=== PATIENT | female | born 1990 | race Asian ===

== ENCOUNTER 2018-06-17 06:01 | Inpatient (IN) | payer OTHER ==
[2018-06-17] MEDS ORDERED: NALOXONE HYDROCHLORIDE 0.4 MG/ML SOL IV PRN (06:25)
[2018-06-17] MEDS ORDERED: MEPIVACAINE HCL 1% MPF 30 ML/VIAL SOL INFIL PRN (06:25)
[2018-06-17] MEDS ORDERED: METHYLERGONOVINE MALEATE 0.2 MG/ML SOL IM PRN (06:25)
[2018-06-17] MEDS ORDERED: FENTANYL 100MCG/2ML SOL IV PRN (06:25)
[2018-06-17] MEDS ORDERED: LACTATED RINGERS 1,000 ML IV PRN (06:25)
[2018-06-17] MEDS ORDERED: CARBOPROST 250 MCG/ML SOL IM PRN (06:25)
[2018-06-17] MEDS ORDERED: SODIUM CHLORIDE 0.9% FLUSH 10 ML SOL IV PRN (06:25)
[2018-06-17] MEDS ORDERED: DIPHENHYDRAMINE 50 MG/ML SOL IV PRN (06:25)
[2018-06-17] MEDS ORDERED: OXYTOCIN 10000 MU/ML SOL IM PRN (06:25)
[2018-06-17] MEDS ORDERED: NALBUPHINE HCL 20 MG/ML SOL IV PRN (06:25)
[2018-06-17] MEDS ORDERED: EPHEDRINE SULFATE 50 MG/ML SOL IV PRN (06:25)
[2018-06-17] MEDS: SODIUM CHLORIDE 0.9% FLUSH 10 ML SOL IV SCH ×2 (06:30→19:48)
[2018-06-17 07:20] LABS: BASOPHILS % (AUTO) 1 % (0-3); EOSINOPHILS % (AUTO) 2 % (0-9); HEMATOCRIT 32 % (35-47); HEMOGLOBIN 10.3 gm/dl (12.0-15.5); LYMPHOCYTES % (AUTO) 19.3 % (10-50); MEAN CORPUSCULAR HEMOGLOBIN 27.8 pg (27.0-32.0); MEAN CORPUSCULAR HGB CONC 31.9 gm/dl (32.0-36.0); MEAN CORPUSCULAR VOLUME 87 fL (81-99); MONOCYTES % (AUTO) 7.8 % (0-12); NEUTROPHILS % (AUTO) 70.4 % (37-80)
[2018-06-17] MEDS: LACTATED RINGERS 1,000 ML IV SCH ×5 (07:30→20:14)
[2018-06-17] MEDS ORDERED: FENTANYL 250 MCG/ 5ML SOL ONE (07:49)
[2018-06-17] MEDS ORDERED: LIDOCAINE HCL 2% MPF 10 ML SOL ONE (07:50)
[2018-06-17] MEDS ORDERED: ROPIVACAINE HYDROCHLORIDE 5 MG/ML SOL ONE ×2 (07:50→07:51)
[2018-06-17] MEDS ORDERED: TERBUTALINE SULFATE 1 MG/ML SOL SC PRN (11:12)
[2018-06-17] MEDS ORDERED: OXYTOCIN 10000 MU/ML 20,000 MU in LACTATED RINGERS 1,000 ML IV SCH (11:15)
[2018-06-17] MEDS ORDERED: LACTATED RINGERS 1,000 ML IV SCH (11:15)
[2018-06-17] MEDS ORDERED: LACTATED RINGERS 1,000 ML with OXYTOCIN 10000 MU/ML 20 MU IV ONE ×2 (17:29→18:00)
[2018-06-17] MEDS ORDERED: CEFAZOLIN SODIUM 1 GM PDS IV ONE (17:30)
[2018-06-17] MEDS ORDERED: METHYLERGONOVINE MALEATE 0.2 MG/ML SOL ONE (17:36)
[2018-06-17] MEDS ORDERED: CARBOPROST 250 MCG/ML SOL IM ONE (17:37)
[2018-06-17] MEDS ORDERED: AZITHROMYCIN 500 MG PDS IV ONE (17:40)
[2018-06-17] MEDS ORDERED: [UNRECOGNIZED DRUG - OTHER] IV ONE (18:00)
[2018-06-17] MEDS ORDERED: LIDOCAINE HCL 1% MPF 30 SOL ONE (18:22)
[2018-06-17] MEDS ORDERED: MISOPROSTOL 100 MCG TAB PR ONE (18:25)
[2018-06-17 18:36] LABS: ABO AB; ANTIBODY SCREEN Negative; RH TYPE Positive
[2018-06-17] MEDS ORDERED: KETOROLAC TROMETHAMINE 30 MG/ML SOL IV PRN (18:56)
[2018-06-17] MEDS ORDERED: METHYLERGONOVINE MALEATE 0.2 MG TAB PO PRN (18:56)
[2018-06-17] MEDS ORDERED: WITCH HAZEL 1 EA PAD TOP PRN (18:56)
[2018-06-17] MEDS ORDERED: ONDANSETRON HCL 4 MG/2 ML SOL IV PRN (18:56)
[2018-06-17] MEDS ORDERED: BENZOCAINE/MENTHOL 1 SPR TOP PRN (18:56)
[2018-06-17] MEDS ORDERED: TEMAZEPAM 15MG 15 MG CAP PO PRN (18:56)
[2018-06-17] MEDS ORDERED: FLEET ENEMA PR PRN (18:56)
[2018-06-17] MEDS ORDERED: DIPHENHYDRAMINE 25 MG CAP PO PRN (18:56)
[2018-06-17] MEDS ORDERED: BISACODYL 10 MG SUP PR PRN (18:56)
[2018-06-17] MEDS ORDERED: LACTATED RINGERS 1,000 ML IV ONE (19:03)
[2018-06-17] MEDS ORDERED: LACTATED RINGERS 500 ML IV SCH (21:00)
[2018-06-17] MEDS: LACTATED RINGERS 500 ML IV SCH ×2 (21:05→23:26)
[2018-06-17 21:17] LABS: BASOPHILS % (AUTO) 0 % (0-3); EOSINOPHILS % (AUTO) 0 % (0-9); HEMATOCRIT 29 % (35-47); LYMPHOCYTES % (AUTO) 3.9 % (10-50); MEAN CORPUSCULAR HEMOGLOBIN 27.4 pg (27.0-32.0); MEAN CORPUSCULAR HGB CONC 31.4 gm/dl (32.0-36.0); MEAN CORPUSCULAR VOLUME 87 fL (81-99); MONOCYTES % (AUTO) 4.4 % (0-12); NEUTROPHILS % (AUTO) 91.5 % (37-80)
[2018-06-17] MEDS: IBUPROFEN 600 MG TAB PO PRN (21:22)
[2018-06-17] MEDS: DOCUSATE SODIUM 100 MG SGL PO SCH (21:22)
[2018-06-18] MEDS: APAP/HYDROCODONE 1 EACH TABLET PO PRN ×4 (00:11→19:25)
[2018-06-18] MEDS: LACTATED RINGERS 1,000 ML IV SCH (01:53)
[2018-06-18] MEDS ORDERED: FERROUS GLUCONATE 324 MG TABLET ONE (08:07)
[2018-06-18] MEDS: DOCUSATE SODIUM 100 MG SGL PO SCH ×2 (08:16→20:25)
[2018-06-18] MEDS: IBUPROFEN 600 MG TAB PO PRN ×3 (08:16→23:52)
[2018-06-18] MEDS: FERROUS GLUCONATE 324 MG TABLET PO SCH ×2 (11:20→20:26)
[2018-06-18] MEDS: SODIUM CHLORIDE 0.9% FLUSH 10 ML SOL IV SCH (18:00)
[2018-06-19] MEDS: SODIUM CHLORIDE 0.9% FLUSH 10 ML SOL IV SCH (03:19)
[2018-06-19] MEDS: APAP/HYDROCODONE 1 EACH TABLET PO PRN ×3 (06:41→17:02)
[2018-06-19 07:46] LABS: BASOPHILS % (AUTO) 0 % (0-3); EOSINOPHILS % (AUTO) 1 % (0-9); HEMATOCRIT 26 % (35-47); HEMOGLOBIN 8.3 gm/dl (12.0-15.5); LYMPHOCYTES % (AUTO) 12.4 % (10-50); MEAN CORPUSCULAR HEMOGLOBIN 27.8 pg (27.0-32.0); MEAN CORPUSCULAR HGB CONC 31.7 gm/dl (32.0-36.0); MEAN CORPUSCULAR VOLUME 88 fL (81-99); MONOCYTES % (AUTO) 5.9 % (0-12); NEUTROPHILS % (AUTO) 80.7 % (37-80)
[2018-06-19] MEDS: IBUPROFEN 600 MG TAB PO PRN ×3 (08:20→21:04)
[2018-06-19] MEDS: DOCUSATE SODIUM 100 MG SGL PO SCH ×2 (08:20→20:12)
[2018-06-19] MEDS: FERROUS GLUCONATE 324 MG TABLET PO SCH ×2 (08:20→20:12)
[2018-06-19 23:03] VITALS: RESP 14
[2018-06-20] MEDS: APAP/HYDROCODONE 1 EACH TABLET PO PRN ×2 (01:37→08:22)
[2018-06-20] MEDS: IBUPROFEN 600 MG TAB PO PRN ×2 (04:31→12:46)
[2018-06-20] MEDS: DOCUSATE SODIUM 100 MG SGL PO SCH (08:22)
[2018-06-20] MEDS: FERROUS GLUCONATE 324 MG TABLET PO SCH (08:22)
[2018-06-20 08:33] VITALS: BP 109/71; PULSE 75; TEMP 97.4; O2SAT 97
== END 2018-06-20 15:25 | disposition home or self-care (01) | DRG 788 ==
LOC: OBSVTOIN 06:01 → OB 06:01
PROVIDERS: ADMIT Family Medicine; ATTEND Family Medicine
PROC: 0KQM0ZZ Repair Perineum Muscle, Open Approach (ICD-10-PCS; 2018-06-17)
PROC: 0W8NXZZ Division of Female Perineum, External Approach (ICD-10-PCS; 2018-06-17)
PROC: 10907ZC Drainage of Amniotic Fluid, Therapeutic from Products of Conception, Via Natural or Artificial Opening (ICD-10-PCS; 2018-06-17)
PROC: 10D00Z1 Extraction of Products of Conception, Low, Open Approach (ICD-10-PCS; principal; 2018-06-17 17:15)
DX: O75.0 Maternal distress during labor and delivery (principal); O82 Encounter for cesarean delivery without indication; Z3A.39 39 weeks gestation of pregnancy; Z37.0 Single live birth; O77.9 Labor and delivery complicated by fetal stress, unspecified; O90.81 Anemia of the puerperium
CPT/HCPCS: 36415; 59025; 74018; 85018; 85025; 86850; 86900; 86901; 94762; J0456; J0670; J0690; J2210; J2250; J2274; J2405; J2590; J2795; J3010; A9270-GY; J2001; J3490